=== PATIENT | male | born 1965 | race Caucasian/White ===

== ENCOUNTER 2017-07-17 16:20 | Outpatient (CLI) | payer OTHER | END 2017-07-17 16:21 | disposition home or self-care (01) | LOC: BICRAD 16:20 | PROVIDERS: ATTEND Internal Medicine Pulmonary Disease | DX: R06.00 Dyspnea, unspecified (principal) | CPT/HCPCS: 71046 ==

== ENCOUNTER 2018-01-14 10:00 | Outpatient (CLI) | payer OTHER ==
[2018-01-14] MEDS ORDERED: ISOVUE-370 76%-LOCM 1 ML ONE (10:49)
--- NOTE | 2018-01-14 13:57 | CT ---
CT CHEST WITH IV CONTRAST: HISTORY: Lung nodule. COMPARISON: 09/06/16 from [facility]. FINDINGS: No mediastinal, hilar, or axillary mass or lymphadenopathy is seen. There is no evidence of thoracic aortic aneurysm or dissection. No pleural or pericardial effusions are seen. The nodule in the lateral aspect of the left lower lobe measures 7 mm (previously 14 mm). The other nodule in the posterior aspect of the left lower lobe that measured 12 mm on the previous exam curren tly measures 6 mm. IMPRESSION: Interval reduction in size of the pulmonary nodules since 09/06/2016. Continued followup in 6 months is recommended. POS: ROJAS
== END 2018-01-14 10:01 | disposition home or self-care (01) ==
LOC: BICCT 10:00
PROVIDERS: ATTEND Internal Medicine Pulmonary Disease
DX: R91.8 Other nonspecific abnormal finding of lung field (principal)
CPT/HCPCS: 71260

== ENCOUNTER 2021-03-20 14:52 | Outpatient (CLI) | payer BC ==
[2021-03-20 15:58] LABS: Hemoglobin 15.7 g/dL (13.5-17.5); Mean Corpuscular HGB CONC 35.1 g/dL (32.0-36.0); Mean Corpuscular Hemoglobin 31.7 pg (27.0-33.0); Mean Corpuscular Volume 90.3 fl (81.2-95.1); Mean Platelet Volume 9.6 fl (7.4-10.4); Platelet Count 210 10x3/uL (150-450); RBC Distribution Width 11.6 % (11.5-14.5); Red Blood Cell (RBC) Count 4.95 10x6/uL (4.32-5.72); White Blood Cell (WBC) Count 5.9 10x3/uL (3.5-10.5)
[2021-03-20 16:14] LABS: Prothrombin Time 10.9 sec (9.5-12.1)
[2021-03-20 16:15] LABS: Anion Gap 11 mmol/L (10-20); BUN (Urea Nitrogen) 17 mg/dL (8.4-25.7); Calc. Creatinine Clearance 0 mL/min (70-130); Calcium 9.4 mg/dL (7.8-10.44); Carbon Dioxide 28 mmol/L (22-29); Chloride 105 mmol/L (98-107); Glucose 74 mg/dL (70-105); Potassium 4.1 mmol/L (3.5-5.1); Sodium 140 mmol/L (136-145)
[2021-03-21 14:31] LABS: SARS-CoV-2 PCR by NAA Not Detected (NotDetected)
== END 2021-03-20 14:53 | disposition home or self-care (01) ==
LOC: LABBT 14:52
PROVIDERS: ATTEND Internal Medicine Cardiovascular Disease
DX: Z01.812 Encounter for preprocedural laboratory examination (principal); I48.0 Paroxysmal atrial fibrillation; Z20.822 Contact with and (suspected) exposure to COVID-19
CPT/HCPCS: 80048; 85027; 85610; U0003; U0005

== ENCOUNTER → 2021-03-23 | Day surgery (SDC) | payer BC ==
[2021-03-22 11:41] VITALS: BMI 24.4
[~2021-03-23] MED LIST: Fentanyl 100 MCG/2 ML VIAL ONE; Heparin 10,000 UNITS/ 10 ML VIAL ONE; Heparin 25,000 units/D5W 500 ML ONE; Lidocaine 1% PF 5 ML VIAL ONE; Mag-Al 1200 mg/1200 mg/30 ML UDCUP ONE; Midazolam HCl 2 mg/2 ml Vial ONE; Ondansetron PF 4 MG/2 ML Vial ONE; PROPOFOL 200 MG/20 ML VIAL ONE; Phenylephrine 10 MG/ML VIAL ONE; Protamine Sulfate 50 MG/5 ML VIAL ONE; Rocuronium Bromide 10 MG/ML (10ML VIAL) ONE; SUGAMMADEX SODIUM 200 MG/2 ML VIAL ONE
== END ==
LOC: CCL 07:59
PROVIDERS: ATTEND Internal Medicine Cardiovascular Disease
PROC: 4A023FZ Measurement of Cardiac Rhythm, Percutaneous Approach (ICD-10-PCS; principal; 2021-03-23)
PROC: 02583ZZ Destruction of Conduction Mechanism, Percutaneous Approach (ICD-10-PCS; principal; 2021-03-23)
PROC: 4A0234Z Measurement of Cardiac Electrical Activity, Percutaneous Approach (ICD-10-PCS; principal; 2021-03-23)
PROC: 02K83ZZ Map Conduction Mechanism, Percutaneous Approach (ICD-10-PCS; principal; 2021-03-23)
DX: I48.0 Paroxysmal atrial fibrillation (principal); I10 Essential (primary) hypertension; Z79.01 Long term (current) use of anticoagulants; Z88.7 Allergy status to serum and vaccine
CPT/HCPCS: 85347; 93005; 93312; 93613; 93655; 93656; 93662; C1731; C1732; C1759; C1776; C1894; C2630; J1644; J2250; J2370; J2405; J2704; J2720; J3010